=== PATIENT | female | born 1985 | race African-American/Black ===

== ENCOUNTER 2022-07-30 11:28 | Emergency (ER) | payer SELFPAY ==
[2022-07-30] MEDS ORDERED: Cyclobenzaprine 10 MG TAB ONE (13:12)
== END 2022-07-30 13:50 | disposition home or self-care (01) ==
LOC: NAV ERS 11:28
DX: S39.012A Strain of muscle, fascia and tendon of lower back, initial encounter (principal); S80.02XA Contusion of left knee, initial encounter; F17.210 Nicotine dependence, cigarettes, uncomplicated; Y04.8XXA Assault by other bodily force, initial encounter

== ENCOUNTER 2023-07-27 15:21 | Emergency (ER) | payer SELFPAY | END 2023-07-27 15:59 | disposition home or self-care (01) | LOC: NAV ERS 15:21 | DX: N94.6 Dysmenorrhea, unspecified (principal); N85.8 Other specified noninflammatory disorders of uterus; F17.210 Nicotine dependence, cigarettes, uncomplicated | CPT/HCPCS: 99283 ==